=== PATIENT | male | born 1960 | race African-American/Black ===

== ENCOUNTER 2022-01-11 10:10 | Outpatient (CLI) | payer SELFPAY ==
[2022-01-11] MEDS ORDERED: CADEXOMER IODINE UD 5 GM TUBE ONE (10:51)
== END 2022-01-11 23:59 | disposition home or self-care (01) ==
LOC: WOU 10:10
PROVIDERS: ATTEND Specialist
DX: E11.621 Type 2 diabetes mellitus with foot ulcer (principal); L97.526 Non-pressure chronic ulcer of other part of left foot with bone involvement without evidence of necrosis; E11.69 Type 2 diabetes mellitus with other specified complication; M86.672 Other chronic osteomyelitis, left ankle and foot; Z89.432 Acquired absence of left foot; Z79.4 Long term (current) use of insulin; Z79.84 Long term (current) use of oral hypoglycemic drugs
CPT/HCPCS: 99205; A6407; G0463

== ENCOUNTER 2022-02-20 20:51 | Inpatient (IN) | payer OTHER ==
[~2022-02-20] VITALS: Ht 180.3 cm; Wt 97.5 kg
[2022-02-20] MEDS ORDERED: ENALAPRILAT DIHYD. (2.5MG/2ML) 1.25 MG/ML VIAL IV ONE (21:00)
[2022-02-20] MEDS ORDERED: ENALAPRILAT INJ (1.25 MG/ML) 1.25 MG/ML VIAL IV ONE (21:04)
[2022-02-20] MEDS ORDERED: AMLODIPINE BESYLATE 10 MG TABLET ONE (21:04)
--- NOTE | 2022-02-20 21:04 | NUR ---
[facility] FROM HOME TO ER BED 3. AAOX4. NOT IN RESP DISTRESS. BROUGHT IN FOR HEADACHE STARTED ABOUT AN HOUR BRIM AND CROWN PRESSER. PT WAS NOTED HYPERTENSIVE REPORTED WITH SBP>200. PT IS ALSO C/O NAUSEA. PT TOOK HIS LISINOPRIL BRIM AND CROWN PRESSER. SARAH GAVE PT ZOFRAN 4MG IV. L AC IV STARTED BY HANGING FLAGS DECORATOR. WAS AT THE BEDSIDE FOR EVAL. ORDERS RECEIVED AND NOTED. PT ON MONITOR
--- NOTE | 2022-02-20 21:11 | NUR ---
xray at bedside
[2022-02-20 21:20] LABS: BASOPHILS # (AUTO) 0.1 K/uL (0.0-0.2); BASOPHILS % (AUTO) 0.6 % (0.0-2.0); EOSINOPHILS % (AUTO) 2.2 % (0.0-6.0); HEMATOCRIT 38 % (39-51); HEMOGLOBIN 12.2 g/dL (13.5-17.5); LYMPHOCYTES # (AUTO) 2.1 K/uL (0.8-4.8); LYMPHOCYTES % (AUTO) 24.8 % (20.0-44.0); MEAN CORPUSCULAR HGB CONC 32 g/dl (31.0-36.0); MEAN CORPUSCULAR VOLUME 88 fL (80-96); MONOCYTES # (AUTO) 0.5 K/uL (0.1-1.30); MONOCYTES % (AUTO) 6.2 % (2.0-12.0); NEUTROPHILS # (AUTO) 5.6 K/uL (1.8-8.9); NEUTROPHILS % (AUTO) 66.2 % (43.0-81.0); PLATELET COUNT (AUTO) 308 K/uL (150-450); RED BLOOD CELL COUNT(AUTO) 4.36 MIL/uL (4.5-6.0); WHITE BLOOD COUNT (AUTO) 8.5 K/uL (4.3-11.0)
[2022-02-20] MEDS ORDERED: AMLODIPINE BESYLATE 5 MG TABLET PO ONE (21:30)
[2022-02-20 21:39] LABS: CALCIUM, SERUM 8.2 mg/dL (8.5-10.1); CARBON DIOXIDE 24 mmol/L (21-32); CHLORIDE 108 mmol/L (98-107); CREATININE 2.4 mg/dL (0.6-1.3); GLUCOSE 270 mg/dL (74-106); POTASSIUM 2.9 mmol/L (3.5-5.1); SODIUM SERUM 141 mmol/L (136-145); UREA NITROGEN, BLOOD 20 mg/dL (7-18)
[2022-02-20 21:48] LABS: ALANINE AMINOTRANSFERASE 12 U/L (12-78); ALKALINE PHOSPHATASE 103 U/L (46-116); ASPARTATE AMINOTRANSFERASE 15 U/L (15-37); BILIRUBIN,DIRECT 0.1 mg/dL (0.0-0.2); BILIRUBIN,TOTAL 0.3 mg/dL (0.2-1.0); TOTAL PROTEIN, SERUM 6.7 g/dL (6.4-8.2)
--- NOTE | 2022-02-20 21:52 | NUR ---
TROP 98 AWARE
--- NOTE | 2022-02-20 21:54 | NUR ---
pt being transported to ct via [facility]
--- NOTE | 2022-02-20 21:58 | NUR ---
COVID TEST COLLECTED AND SENT TO LAB
[2022-02-20] MEDS ORDERED: ASPIRIN 325 MG TABLET PO ONE (22:00)
[2022-02-20] MEDS ORDERED: NITROGLYCERIN PACKET 1 GM PACKET TD ONE (22:00)
[2022-02-20] MEDS ORDERED: NITROGLYCERIN PACKET 1 GM PACKET ONE (22:02)
[2022-02-20] MEDS ORDERED: ASPIRIN 325 MG TABLET ONE (22:02)
--- NOTE | 2022-02-20 22:03 | NUR ---
DR CHISHOLM ON THE PHONE WITH VICKEY SIMMONS, HOSPITALIST
--- NOTE | 2022-02-20 22:41 | NUR ---
RECIEVED BED 312-1
--- NOTE | 2022-02-20 22:49 | NUR ---
DR SIMMONS AT BEDSIDE
--- NOTE | 2022-02-20 23:32 | NUR ---
REPORT GIVEN TO KALANI
[2022-02-20 23:40] VITALS: BP 171/103
--- NOTE | 2022-02-20 23:42 | NUR ---
PT TRANSPORTED TO ROOM 312-1 ON PLASTIC SHEETING CUTTER PER ACLS
[2022-02-21] VITALS (18 sets, daily range): BP systolic 106–192; BP diastolic 62–106
[2022-02-21] MEDS ORDERED: ONDANSETRON HCL/PF 4 MG/2 ML VIAL IVP PRN
[2022-02-21] MEDS ORDERED: Z GUARD REMEDY 4 OZ OINT TP PRN
[2022-02-21] MEDS ORDERED: hydrALAZINE HCL IV 20 MG VIAL IV PRN
[2022-02-21] MEDS ORDERED: HYDROMORPHONE INJ 2 MG/ML DISP.SYRIN IV PRN
[2022-02-21] MEDS ORDERED: DEXTROSE 50%-WATER 50 ML DISP.SYRIN IV PRN
[2022-02-21] MEDS ORDERED: ACETAMINOPHEN 325 MG TABLET PO PRN
[2022-02-21 00:24] LABS: MAGNESIUM 2.1 mg/dL (1.8-2.4)
--- NOTE | 2022-02-21 00:28 | NUR ---
RN NOTES RECEIVED CALL FROM LAB FOR CRITICAL LAB VALUE FOR TROPONIN OF 92. VICKEY SIMMONS MADE AWARE. NO NEW ORDERS.
[2022-02-21] MEDS ORDERED: NICARDIPINE HCL 40 MG in IV NS 0.9% 184 ML IV PRN (00:30)
[2022-02-21] MEDS ORDERED: POTASSIUM CHLORIDE 20 MEQ TAB.PRT.SR PO ONE ×2 (01:00)
[2022-02-21] MEDS ORDERED: HYDROMORPHONE 1 MG/1 ML DISP.SYRIN IV STA (01:08)
--- NOTE | 2022-02-21 01:11 | NUR ---
RN NOTES RECEIVED PT VIA DECLANRjCRISTINA [employer] 9835. TOOK 1ST SET OF VITALS: 171/103, 93, 20 RESPIRATIONS, 98.1 97%. TOOK VITALS AGAIN AND IT WAS 185/107, 98%, 98 PULSE, 20 RESPIRATIONS, 98.1, 8/10 PAIN IN LEFT LEG DUE TO RECENT BELOW THE KNEE AMPUTATION, WHICH WAS DONE ABOUT 2-3 WEEKS AGO. PATIENT COMPLAINED OF PAIN 8/10 THAT WAS NOT TREATED IN ER. ADMINISTERED 0.25 ML OF DILAUDID IV PUSH IN LAC #18G. ALSO ADMINISTERED 40 MEQ OF POTASSIUM PER MD ORDER. THEN RECEIVED ORDER FROM VICKEY SIMMONS THAT ADMISSION STATUS FOR PATIENT CHANGED TO ICU STATUS FOR LAKHWINDERM DRIP. UNABLE TO DO BELONGINGS LIST OR WOUND PICTURES DUE TO TIME RESTRICTIONS. PATIENT TRANSFERRED UNDER ACLS PROTOCOL TO ICU ROOM 255. REPORT GIVEN CHIEF CLIENT OFFICER MOSHE. CHARGE NURSE AND NURSING GRAINER MACHINE AWARE.
[2022-02-21] MEDS ORDERED: INSU100V7 SQ (02:05)
[2022-02-21] MEDS ORDERED: LISI-768 PO (02:05)
[2022-02-21] MEDS ORDERED: JANUVIA PO (02:05)
--- NOTE | 2022-02-21 02:09 | NUR ---
RN/ICU HOME MEDS .LIST OBTAINED FROM PT. INCOMPLETE,PT. DOES NOT REMEMBER ALL MEDS. ABLE TO GATHER 3 MEDS. WILL ASK TO BRING MED LIST IN AM.
--- NOTE | 2022-02-21 02:17 | NUR ---
AUTOMOBILE UPHOLSTERY TRIM INSTALLER. TRANSFER THE PT FROM TELE VIA PT BED. FOR HIGH BLOOD PRESSURE. PT IS AWAKE, ALERT, FOLLOW COMMANDS. ANODIZER SHOWING NSR. IV RT AC 18G. SALINE LOCK. HOB ELEVATED. LT BKA. .A FEBRILE. WILL CONTINUE TO MONITOR VITALS.
[2022-02-21] MEDS ORDERED: CLOP75TA15 PO (02:32)
[2022-02-21] MEDS ORDERED: POTA10CA43 PO (02:32)
[2022-02-21] MEDS ORDERED: APIX5TAB PO (02:32)
[2022-02-21] MEDS ORDERED: SENN-261 PO (02:32)
[2022-02-21] MEDS ORDERED: CARV25TA2 PO (02:32)
[2022-02-21] MEDS ORDERED: VALS40TA4 PO (02:32)
[2022-02-21] MEDS ORDERED: GABA-532 PO (02:32)
[2022-02-21 04:15] LABS: BASOPHILS # (AUTO) 0.1 K/uL (0.0-0.2); BASOPHILS % (AUTO) 1.3 % (0.0-2.0); HEMATOCRIT 37 % (39-51); HEMOGLOBIN 11.8 g/dL (13.5-17.5); LYMPHOCYTES # (AUTO) 1.8 K/uL (0.8-4.8); LYMPHOCYTES % (AUTO) 21.3 % (20.0-44.0); MEAN CORPUSCULAR HGB CONC 32 g/dl (31.0-36.0); MEAN CORPUSCULAR VOLUME 89 fL (80-96); MONOCYTES # (AUTO) 0.6 K/uL (0.1-1.30); MONOCYTES % (AUTO) 7.7 % (2.0-12.0); NEUTROPHILS # (AUTO) 5.7 K/uL (1.8-8.9); NEUTROPHILS % (AUTO) 68.7 % (43.0-81.0); PLATELET COUNT (AUTO) 227 K/uL (150-450); RED BLOOD CELL COUNT(AUTO) 4.14 MIL/uL (4.5-6.0); WHITE BLOOD COUNT (AUTO) 8.3 K/uL (4.3-11.0)
[2022-02-21 04:38] LABS: CALCIUM, SERUM 7.9 mg/dL (8.5-10.1); CREATININE 2.4 mg/dL (0.6-1.3); MAGNESIUM 2.1 mg/dL (1.8-2.4); PHOSPHORUS 2.8 mg/dL (2.5-4.9); POTASSIUM 3.7 mmol/L (3.5-5.1)
[2022-02-21 05:18] LABS: THYROID STIMULATING HORMONE 1.621 uIU/mL (0.358-3.74)
[2022-02-21] MEDS: HYDROMORPHONE INJ 2 MG/ML DISP.SYRIN IV PRN ×5 (05:37→22:34)
--- NOTE | 2022-02-21 06:20 | NUR ---
PHARMACY TECHNICIAN PER DIEM. PT SLEPT ON AND OFF DURING SHIFT, PT IS ROOM AIR. SAT 98%. NO ACUTE DISTRESS NOTED. BLOOD PRESSURE IS STABLE. WILL MONITOR VITALS.
--- NOTE | 2022-02-21 07:30 | NUR ---
RN NOTES PT FOUND SEMI FOWLERS DISPLAYING NO S/S OF ACUTE DISTRESS, PT ENDORSES 5/10 PAIN SCALE AND IS BREATHING EVEN AND UNLABORED ON RA. RN WILL MANAGE PAIN USING PRN GUIDELINES, PT EDUCATED ON PAIN MANAGEMENT. A&OX4, CALM AND COOPERATIVE. L AC 18G IS PATIENT AND INTACT. RN WILL CONTINUE CARE PLAN AND ANTICIPATE NEEDS. SAFETY MEASURES IN PLACE, BED LOCKED AND IN LOWEST POSITION, SIDE RAILS UPX2, CALL LIGHT WITHIN REACH, PT INSTRUCTED TO CALL FOR ASSISTANCE.
[2022-02-21] MEDS: PANTOPRAZOLE 40 MG TABLET.DR PO SCH (07:48)
[2022-02-21] MEDS: BLOOD SUGAR DIAGNOSTIC 1 EACH STRIP IN SCH ×4 (07:48→21:45)
[2022-02-21] MEDS: ASPIRIN 81 MG TAB.CHEW PO SCH (08:11)
[2022-02-21] MEDS: INSULIN REGULAR, HUMAN 100 UNIT/ML 3 ML VIAL SQ PRN ×3 (08:13→21:50)
[2022-02-21] MEDS ORDERED: HEPARIN SODIUM, PORCINE 5000 UNITS/1 ML VIAL SQ SCH (09:00)
--- NOTE | 2022-02-21 10:00 | NUR ---
MD VISIT DR DEAL GAVE ORDERS IN PERSON: CONTINUE HOME MEDICATIONS, INCREASE GABAPENTIN FROM 300 MG TID TO 600 MG BID, OXYCONTIN 10MG PRN SEVERE PAIN Q6H. RN ACKNOWLEDGED AND WILL CARRY OUT ORDERS.
[2022-02-21] MEDS ORDERED: NALOXONE HCL 0.4 MG/ML AMPUL IV PRN (10:30)
[2022-02-21] MEDS ORDERED: oxyCODONE HCL SR 10MG TAB.SR.12H PO PRN (10:30)
--- NOTE | 2022-02-21 10:50 | NUR ---
RN NOTE PATIENT TRANSFERRED TO ROOM 111-2 [facility]. REPORT GIVEN TO JOAQUIN SAINI. PATIENT STABLE ON ROOM AIR WITH NO SIGNS OF LABORED BREATHING. PATIENT STABLE DURING TRANSFER.
[2022-02-21] MEDS ORDERED: LISINOPRIL (5MG) 5 MG TABLET PO SCH (11:00)
--- NOTE | 2022-02-21 11:08 | NUR ---
RN NOTE PATIENT WAS TRANSFERRED TO UNIT FROM ICU, PATIENT CAME TO UNIT VIA GURNEY WITH NO SIGNS OF DISTRESS. PATIENT WAS ORIENTED TO ROOM SET UP AND SHOWED PATIENT HOW TO USE CALL LIGHT. PATIENT AWAKE IN BED RESTING, A/O X4. NO S/S OF PAIN NOTED AT THIS TIME. ON ROOM AIR, NO DISTRESS OR SHORTNESS OF BREATH NOTED. IV ACCESS LAC #18G, INTACT, PATENT AND FLUSHING WELL. FALL AND SAFETY MEASURES IN PLACE, BED ALARM ON BED IN LOW AND LOCK POSITION, CALL LIGHT AND TABLE WITHIN EASY REACH, SIDE RAILS UP X2. WILL CONTINUE TO MONITOR.
--- NOTE | 2022-02-21 16:09 | NUR ---
CLARIFIED WITH DR. GIRALDO IF OK TO GIVE PLAVIX/ASA R/T INCOMING PROCEDURE IN AM PER MD OK TO GIVE IT ORDERED IN AM.
[2022-02-21] MEDS: SENNOSIDES 8.6 MG TABLET PO SCH ×2 (17:00→17:01)
[2022-02-21] MEDS: GABAPENTIN 300 MG CAPSULE PO SCH (17:01)
[2022-02-21] MEDS: CARVEDILOL 12.5 MG TABLET PO SCH (17:01)
[2022-02-21] MEDS: POTASSIUM CHLORIDE 10 MEQ TABLET.SA PO SCH (17:01)
--- NOTE | 2022-02-21 19:00 | NUR ---
RN NOTE PATIENT WAS TRANSFERRED TO UNIT FROM ER, PATIENT CAME TO UNIT VIA GURNEY WITH NO SIGNS OF DISTRESS. REPORT RECEIVED FROM GAGE. PER ER NURSE SEAY CATHETER WAS ADVANCED AND REINFLATED AGAIN, IN PLACE AND DRAINING WELL. PATIENT WAS ORIENTED TO ROOM SET UP AND SHOWED PATIENT HOW TO USE CALL LIGHT. PATIENT AWAKE IN BED RESTING, A/O X3. NO S/S OF PAIN NOTED AT THIS TIME. ON ROOM AIR, NO DISTRESS OR SHORTNESS OF BREATH NOTED. IV ACCESS LFA #20G, INTACT, PATENT AND FLUSHING WELL. FALL AND SAFETY MEASURES IN PLACE, BED ALARM ON BED IN LOW AND LOCK POSITION, CALL LIGHT AND TABLE WITHIN EASY REACH, SIDE RAILS UP X2. WILL ENDORSE TO ROVING CHANGER. Addendum: 02/21/22 at 1941 by Alberta Howe RN DISREGARD THIS NOTE, ERROR.
--- NOTE | 2022-02-21 19:42 | NUR ---
RN CLOSING NOTE PATIENT AWAKE IN BED RESTING, A/O X4. NO S/S OF PAIN NOTED AT THIS TIME. ON ROOM AIR, NO DISTRESS OR SHORTNESS OF BREATH NOTED. IV ACCESS LAC #18G, INTACT, PATENT AND FLUSHING WELL. FALL AND SAFETY MEASURES IN PLACE, BED ALARM ON BED IN LOW AND LOCK POSITION, CALL LIGHT AND TABLE WITHIN EASY REACH, SIDE RAILS UP X2. WILL ENDORSE TO OPTOMETRIC ASSISTANT.
--- NOTE | 2022-02-21 19:55 | NUR ---
RN OPENING NOTE PATIENT AWAKE IN BED RESTING, A/O X4. NO S/S OF PAIN NOTED AT THIS TIME. ON ROOM AIR, NO DISTRESS OR SHORTNESS OF BREATH NOTED. IV ACCESS LAC #18G, INTACT, PATENT AND FLUSHING WELL. FALL AND SAFETY MEASURES IN PLACE, BED ALARM ON BED IN LOW AND LOCK POSITION, CALL LIGHT AND TABLE WITHIN EASY REACH, SIDE RAILS UP X2. WILL CONTINUE TO MONITOR.
[2022-02-21] MEDS: ATORVASTATIN 40 MG TABLET PO SCH (21:45)
[2022-02-21] MEDS: INSULIN GLARGINE, 100 UNIT/ML CARTRIDGE SQ PRN (21:51)
--- NOTE | 2022-02-21 22:39 | NUR ---
rn notes prn dilaudid given for pain 5/10 tolerated well will continue to monitor.
[2022-02-22 00:41] VITALS: BP 115/65
[2022-02-22] MEDS: HYDROMORPHONE INJ 2 MG/ML DISP.SYRIN IV PRN ×5 (02:40→22:07)
--- NOTE | 2022-02-22 02:43 | NUR ---
RN NOTE PRN DILAUDIDI GIVEN FOR 8/10 PAIN TOLERATED WELL. WILL CONTINUE TO MONITOR.
[2022-02-22 04:00] VITALS: BP 120/78
--- NOTE | 2022-02-22 07:25 | NUR ---
RN OPENING NOTE PATIENT AWAKE IN BED RESTING, A/O X4. DENIES PAIN AT THIS TIME. RECENTLY RECEIVED PAIN MEDICATION. ON ROOM AIR, NO SOB NOTED. IV ACCESS LAC G#18, INTACT, PATENT AND FLUSHING WELL. FALL AND SAFETY MEASURES IN PLACE, BED ALARM ON BED IN LOW AND LOCK POSITION, CALL LIGHT AND TABLE WITHIN EASY REACH, SIDE RAILS UP X2. WILL CONTINUE TO MONITOR.
[2022-02-22 08:00] VITALS: BP 123/77
[2022-02-22] MEDS: VALSARTAN 40 MG TABLET PO SCH (08:28)
[2022-02-22] MEDS: LINAGLIPTIN 5 MG TABLET PO SCH (08:28)
[2022-02-22] MEDS: CLOPIDOGREL BISULFATE 75 MG TABLET PO SCH (08:28)
[2022-02-22] MEDS: GABAPENTIN 300 MG CAPSULE PO SCH ×2 (08:28→17:36)
[2022-02-22] MEDS: PANTOPRAZOLE 40 MG TABLET.DR PO SCH (08:29)
[2022-02-22] MEDS: SENNOSIDES 8.6 MG TABLET PO SCH ×2 (08:29→17:35)
[2022-02-22] MEDS: ASPIRIN 81 MG TAB.CHEW PO SCH (08:29)
[2022-02-22] MEDS: POTASSIUM CHLORIDE 10 MEQ TABLET.SA PO SCH ×2 (08:29→17:36)
[2022-02-22] MEDS: CARVEDILOL 12.5 MG TABLET PO SCH ×2 (08:29→17:36)
[2022-02-22] MEDS ORDERED: APIXABAN 5 MG TABLET PO SCH (09:00)
[2022-02-22] MEDS ORDERED: IV NS 0.9% 1,000 ML IV SCH (09:30)
[2022-02-22] MEDS: BLOOD SUGAR DIAGNOSTIC 1 EACH STRIP IN SCH ×4 (09:38→22:55)
[2022-02-22 12:00] VITALS: BP 118/72
[2022-02-22] MEDS ORDERED: LIDOCAINE HCL/PF 1% 30 ML SDV ONE (14:28)
[2022-02-22] MEDS ORDERED: IODIXANOL 150 ML IV ONE (14:28)
[2022-02-22] MEDS ORDERED: FENTANYL PF 100MCG/2ML AMPUL ONE (14:29)
[2022-02-22] MEDS ORDERED: NITROGLYCERIN IN 5 % DEXTROSE 250 ML IV ONE (14:29)
[2022-02-22] MEDS ORDERED: MIDAZOLAM HCL 2 MG/2ML VIAL ONE (14:29)
[2022-02-22 16:00] VITALS: BP 123/75
--- NOTE | 2022-02-22 16:00 | NUR ---
RN NOTES PATIENT BACK IN ROOM FROM SPEAKER WIRER PROCEDURE. NO COMPLICATIONS OR INTERVENTIONS DURING PROCEDURE. VSS. AWAKE, A/O X4. TR BAND IN PLACE AT RIGHT WRIST. BALLOON FILLED 16ML. ORDERED TO START RELEASING AIR FROM BALLOON AT 1640. RELEASE 3-5ML OF AIR EVERY 15 MINS UNTIL BALLOON DEFLATED COMPLETELY. SAFETY MEASURES IN PLACE. WILL CONTINUE TO MONITOR PATIENT
--- NOTE | 2022-02-22 16:42 | NUR ---
RN NOTES RELEASED 3ML FROM TR BAND. REMAINING AIR IS 13ML. NO BLEEDING NOTED AT SITE.
--- NOTE | 2022-02-22 16:57 | NUR ---
RN NOTES RELEASED 3ML FROM TR BAND. REMAINING AIR IS 10ML. NO BLEEDING NOTED AT SITE.
--- NOTE | 2022-02-22 17:13 | NUR ---
RN NOTES RELEASED 3ML FROM TR BAND. REMAINING AIR IS 7ML. NO BLEEDING NOTED AT SITE.
--- NOTE | 2022-02-22 17:28 | NUR ---
RN NOTES RELEASED 3ML FROM TR BAND. REMAINING AIR IS 4ML. NO BLEEDING NOTED AT SITE.
--- NOTE | 2022-02-22 17:43 | NUR ---
RN NOTES RELEASED 3ML FROM TR BAND. REMAINING AIR IS 1ML. NO BLEEDING NOTED AT SITE.
[2022-02-22] MEDS: INSULIN REGULAR, HUMAN 100 UNIT/ML 3 ML VIAL SQ PRN ×2 (17:55→22:56)
--- NOTE | 2022-02-22 18:00 | NUR ---
RN NOTES TR BAND AIR BALLOON DEFLATED. NO SIGNS OF BLEEDING.
--- NOTE | 2022-02-22 19:00 | NUR ---
RN NOTES PATIENT IN BED RESTING COMFORTABLY. ALL ORDERS CARRIED OUT AND NEEDS MET. SAFETY MEASURES IN PLACE. WILL ENDORSE CARE TO CONTENT DIRECTOR NURSE
--- NOTE | 2022-02-22 19:15 | NUR ---
RN NOTE PT RECEIVED IN BED. PT ON ROOM AIR SHOWING NO S/SX OF RESP DISTRESS/SOB. BREATHING EVEN AND UNLABORED. PT COMPLAINING OF PAIN, PAIN MEDICATION ALMOST DUE. WILL MONITOR. PT IS A/OX4. ON MONITOR SHOWING NSR. PT ABLE TO AMBULATE WITH ASSISTIVE DEVICE. IV ACCESS NOTED ON LEFT AC #18 INFUSING NS AT 125 CC/HR. LINE FLUSHED, PATENT, WITH NO INFILTRATION. ALL SAFETY MEASURES IMPLEMENTED. HOB ELEVATED. CALL LIGHT WITHIN REACH. BED LOCKED AND IN LOWEST POSITION. SIDE RAILS UP X2. WILL CONTINUE TO MONITOR AND ASSESS FOR ANY CHANGES DURING SHIFT.
[2022-02-22 20:00] VITALS: BP 100/61
--- NOTE | 2022-02-22 22:00 | NUR ---
RN NOTE Walked into alert/oriented x4 patients room to conduct patient rounding and patient stated he needed to use the restroom, patient stated that he is able to walk by himself all the time with use of walker and previous endorsements mentioned that he is able to ambulate with walker independently without any troubles in ICU and in [facility] unit. When patient stood up, I asked if he was feeling dizzy at all or SOB and per patient he stated he was feeling perfect and he was able to walk. I told patient previously if he wasn't feeling okay to walk, we could provide a bedpan, but patient refused and insisted he was perfectly okay to walk with his walker. As he got up, took a few steps with the walker, I witnessed the fall d/t patient stating the walker moved forward as he touched it. Patient ended up falling down, but caught himself as he went down. Upon assessment post fall, patient was still A/Ox4, stated he was perfectly fine, did not feel injured at all, did not hit head, denied any pain when asked, and that there is nothing wrong with him. health services administrator Shyla aware and patient stated same statement to health services administrator Shyla. Will continue to monitor for any changes. All safety measures implemented.
[2022-02-22] MEDS: ATORVASTATIN 40 MG TABLET PO SCH (22:07)
--- NOTE | 2022-02-22 23:09 | NUR ---
RN NOTE Spoke with Dr. Roberto about pt fall and per , monitor neuro status and update if any change in neuro status. Will continue to monitor and assess for any changes, but per assessment and patient response to fall, patient still a/ox4, no injuries, no pain noted with patient stating he is perfectly fine. All safety measures implemented, bed alarm on, bed locked and in lowest position, side rails up. Will continue to monitor.
[2022-02-23] VITALS: BP 118/68
--- NOTE | 2022-02-23 00:30 | NUR ---
RN NOTE Patient resting in bed comfortably. No changes in condition. Patient alert and oriented x4, verbalizes needs and all needs met. Will continue to monitor throughout shift.
[2022-02-23] MEDS: HYDROMORPHONE INJ 2 MG/ML DISP.SYRIN IV PRN ×5 (03:01→19:54)
[2022-02-23] MEDS: IV NS 0.9% 1,000 ML IV PRN ×2 (03:16→18:51)
[2022-02-23 04:00] VITALS: BP 130/74
--- NOTE | 2022-02-23 04:30 | NUR ---
RN NOTE PT IS PERFECTLY FINE. NO SIGNS OF DISTRESS. PT IS ALERT AND ORIENTED X4, ABLE TO VERBALIZE NEEDS. PT HAS BEEN WALKING SINCE ADMISSION AND LAST 2 WEEKS WITH NO PROBLEMS.
--- NOTE | 2022-02-23 06:28 | NUR ---
RN NOTE PT ON ROOM AIR SHOWING NO S/SX OF RESP DISTRESS/SOB. BREATHING EVEN AND UNLABORED. PT IS A/OX4. NO SIGNS OF DISTRESS. ON MONITOR SHOWING NSR. IV ACCESS NOTED ON LEFT AC #18 INFUSING NS AT 125 CC/HR. ALL DUE MEDS GIVEN ORDERED. PT KEPT CLEAN AND COMFORTABLE. ALL SAFETY MEASURES IMPLEMENTED. HOB ELEVATED. CALL LIGHT WITHIN REACH. BED LOCKED AND IN LOWEST POSITION. SIDE RAILS UP X2. WILL ENDORSE TO MORNING SHIFT RN FOR MASSIEL.
[2022-02-23 08:00] VITALS: BP 119/68
[2022-02-23] MEDS: PANTOPRAZOLE 40 MG TABLET.DR PO SCH (08:03)
[2022-02-23] MEDS: BLOOD SUGAR DIAGNOSTIC 1 EACH STRIP IN SCH ×4 (08:05→22:16)
[2022-02-23] MEDS: SENNOSIDES 8.6 MG TABLET PO SCH ×2 (08:36→17:33)
[2022-02-23] MEDS: GABAPENTIN 300 MG CAPSULE PO SCH ×2 (08:38→17:33)
[2022-02-23] MEDS: ASPIRIN 81 MG TAB.CHEW PO SCH (08:38)
[2022-02-23] MEDS: CARVEDILOL 12.5 MG TABLET PO SCH ×2 (08:38→17:33)
[2022-02-23] MEDS: POTASSIUM CHLORIDE 10 MEQ TABLET.SA PO SCH ×2 (08:38→17:33)
[2022-02-23] MEDS: CLOPIDOGREL BISULFATE 75 MG TABLET PO SCH (08:39)
[2022-02-23] MEDS: VALSARTAN 40 MG TABLET PO SCH (08:39)
[2022-02-23] MEDS: LINAGLIPTIN 5 MG TABLET PO SCH (08:39)
[2022-02-23] MEDS: INSULIN REGULAR, HUMAN 100 UNIT/ML 3 ML VIAL SQ PRN ×4 (08:42→22:16)
[2022-02-23] MEDS: INSULIN GLARGINE, 100 UNIT/ML CARTRIDGE SQ PRN (08:43)
[2022-02-23 10:15] LABS: CALCIUM, SERUM 8.3 mg/dL (8.5-10.1); CREATININE 2.8 mg/dL (0.6-1.3); POTASSIUM 4.4 mmol/L (3.5-5.1)
[2022-02-23 10:20] LABS: BASOPHILS # (AUTO) 0.1 K/uL (0.0-0.2); BASOPHILS % (AUTO) 0.7 % (0.0-2.0); EOSINOPHILS % (AUTO) 3.2 % (0.0-6.0); HEMATOCRIT 34 % (39-51); HEMOGLOBIN 11.1 g/dL (13.5-17.5); LYMPHOCYTES # (AUTO) 1.6 K/uL (0.8-4.8); LYMPHOCYTES % (AUTO) 20.6 % (20.0-44.0); MEAN CORPUSCULAR HGB CONC 32 g/dl (31.0-36.0); MEAN CORPUSCULAR VOLUME 90 fL (80-96); MONOCYTES # (AUTO) 0.7 K/uL (0.1-1.30); MONOCYTES % (AUTO) 8.6 % (2.0-12.0); NEUTROPHILS # (AUTO) 5.2 K/uL (1.8-8.9); NEUTROPHILS % (AUTO) 66.9 % (43.0-81.0); PLATELET COUNT (AUTO) 233 K/uL (150-450); RED BLOOD CELL COUNT(AUTO) 3.82 MIL/uL (4.5-6.0); WHITE BLOOD COUNT (AUTO) 7.8 K/uL (4.3-11.0)
[2022-02-23 10:50] LABS: ALBUMIN 1.9 g/dL (3.4-5.0); BILIRUBIN,DIRECT 0.1 mg/dL (0.0-0.2); BILIRUBIN,TOTAL 0.3 mg/dL (0.2-1.0); PHOSPHORUS 2.6 mg/dL (2.5-4.9); TOTAL PROTEIN, SERUM 6.3 g/dL (6.4-8.2)
[2022-02-23 12:00] VITALS: BP 127/73
[2022-02-23 16:00] VITALS: BP 127/73
--- NOTE | 2022-02-23 16:34 | NUR ---
SHIFT SUMMARY VSS, AFEBRILE, PAIN MANAGED WITH DILAUDID X2. A/OX4. ON ROOM AIR, SATURATING WELL AT >99%. IV ACCESS L AC #18, NS RUNNING AT 125 ML/HR, INTACT AND PATENT. L BKA NOTED WITH DAVIS WRAP, C/D/I. SUPPLEMENTAL INSULIN GIVEN PER MD-SLIDING SCALE. SAFETY MEASURES MAINTAINED. BED IN LOWEST POSITION, BRAKES LOCKED. SIDE RAILS UP X2. CALL LIGHT WITHIN REACH. WILL ENDORSE CONTINUITY OF CARE TO ONCOMING SHIFT.
--- NOTE | 2022-02-23 19:15 | NUR ---
RN OPENING NOTES RECEIVED PATIENT ON BED, ALERT AND VERBALLY RESPONSIVE, A/O x 4, ON ROOM AIR SATING AT 100%, RESPIRATORY EVEN AND UNLABORED, NO SOB NOTED, NOT IN ACUTE DISTRESS. REMAIN AFEBRILE. NOTED WITH LAC #18 IV LINE, PATENT, INTACT. FLUSHED WITH NS, NO S/S OF INFILTRATION NOTED AT SITE. RUNNING WITH NS @ 125 ML/HR. ALL SAFETY MEASURE PROVIDED. BED IN LOWEST POSITION, LOCKED. BED ALARM ARMED. CALL LIGHT WITH IN REACH. CONTINUE TO MONITOR.
[2022-02-23 20:00] VITALS: BP 100/56
[2022-02-23] MEDS: ATORVASTATIN 40 MG TABLET PO SCH (22:10)
--- NOTE | 2022-02-23 22:16 | NUR ---
RN NOTES BLOOD SUGAR 116 mg/dL, NO INSULIN COVERAGE PER SLIDING SCALE.
--- NOTE | 2022-02-23 23:00 | NUR ---
RN NOTES PATIENT REFUSED TO WEAR TELEBOX, EXPLAINED RISKS AND BENEFITS OFFER 3X, STILL REFUSED.
--- NOTE | 2022-02-23 23:34 | NUR ---
RN NOTES PATIENT NOTED WITH PULLED OUT IV LINE, REFUSED TO BE INSERTED, PATIENT STATES THAT HE DOESN'T WANT IT TO REINSERTED, PATIENT IS UNCOOPERATIVE AT THIS TIME AND NOTED WITH MILD AGITATION. EXPLAINED RISKS AND BENEFITS OFFER 3X, STILL REFUSED. WILL TRY AGAIN LATER.
--- NOTE | 2022-02-24 | NUR ---
RN NOTES PATIENT REFUSED TO TAKE HIS VITAL SIGNS, PATIENT IS UNCOOPERATIVE AT THIS TIME AND NOTED WITH AGITATION AND SCREAMING. EXPLAINED RISKS AND BENEFITS OFFER 3X, STILL REFUSED. WILL TRY AGAIN LATER.
--- NOTE | 2022-02-24 04:00 | NUR ---
RN NOTES PATIENT REFUSED TO TAKE HIS VITAL SIGNS, PATIENT IS UNCOOPERATIVE AT THIS TIME AND NOTED WITH AGITATION AND SCREAMING. EXPLAINED RISKS AND BENEFITS OFFER 3X, STILL REFUSED.
--- NOTE | 2022-02-24 05:20 | NUR ---
RN NOTES PATIENT REFUSED TO TAKE PICTURE ON HIS LEFT BKA SURGICAL WOUND.
--- NOTE | 2022-02-24 06:35 | NUR ---
RN NOTES PATIENT REFUSED BLOOD DRAW, EXPLAINED RISKS AND BENEFITS OFFER 3X, STILL REFUSED.
--- NOTE | 2022-02-24 07:36 | NUR ---
RN NOTES PATIENT REMAIN STABLE THROUGH OUT THE SHIFT, RESPIRATORY EVEN AND UNLABORED, NO SOB NOTED, NOT IN ACUTE DISTRESS. REMAIN AFEBRILE. ALL DUE MEDS GIVEN ORDERED. ALL SAFETY MEASURE PROVIDED. BED IN LOWEST POSITION, LOCKED. BED ALARM ARMED. CALL LIGHT WITH IN REACH. REPORT GIVEN TO MORNING SHIFT NURSE.
[2022-02-24] MEDS: BLOOD SUGAR DIAGNOSTIC 1 EACH STRIP IN SCH ×4 (07:47→22:19)
--- NOTE | 2022-02-24 07:57 | NUR ---
COATING MIXER TENDER OPENING NOTES RECEIVED PATIENT IN BED, AWAKE, A/O x 4, ABLE TO MAKE NEEDS KNOWN. PATIENT IS ON ROOM AIR, BREATHING EVEN AND UNLABORED, NO SOB NOTED, NOT IN ACUTE DISTRESS. REFUSES TELE MONITORING. REFUSES IV INSERTION THAT PATIENT REMOVED AT NIGHT. ALL SAFETY PRECAUTIONS IN PLACE. BED IN LOWEST POSITION, LOCKED, RAILS UP X2, CALL LIGHT WITH IN REACH. WILL CONTINUE TO MONITOR PATIENT.
[2022-02-24] MEDS: ASPIRIN 81 MG TAB.CHEW PO SCH (08:34)
[2022-02-24] MEDS: POTASSIUM CHLORIDE 10 MEQ TABLET.SA PO SCH ×2 (08:34→17:34)
[2022-02-24] MEDS: GABAPENTIN 300 MG CAPSULE PO SCH ×2 (08:34→17:34)
[2022-02-24] MEDS: CARVEDILOL 12.5 MG TABLET PO SCH ×2 (08:35→17:35)
[2022-02-24] MEDS: PANTOPRAZOLE 40 MG TABLET.DR PO SCH (08:35)
[2022-02-24] MEDS: LINAGLIPTIN 5 MG TABLET PO SCH (08:36)
[2022-02-24] MEDS: SENNOSIDES 8.6 MG TABLET PO SCH ×2 (08:36→17:34)
[2022-02-24] MEDS: CLOPIDOGREL BISULFATE 75 MG TABLET PO SCH (08:36)
[2022-02-24] MEDS: INSULIN REGULAR, HUMAN 100 UNIT/ML 3 ML VIAL SQ PRN ×2 (11:22→22:21)
[2022-02-24 12:00] VITALS: BP 152/89
[2022-02-24] MEDS: FUROSEMIDE 40 MG TABLET PO SCH (12:43)
[2022-02-24 16:00] VITALS: BP 115/70
--- NOTE | 2022-02-24 18:47 | NUR ---
MACHINE OPERATOR FARMWORKER CLOSING NOTES PATIENT REMAINS IN BED, AWAKE, A/O x 4, ABLE TO MAKE NEEDS KNOWN. PATIENT IS ON ROOM AIR, BREATHING EVEN AND UNLABORED, NO SOB DURING SHIFT. REFUSED TELE MONITORING. REFUSED IV INSERTION. ALL OTHER NEEDS ATTENDED DURING THE DAY. ALL SAFETY PRECAUTIONS IN PLACE. BED IN LOWEST POSITION, LOCKED, RAILS UP X2, CALL LIGHT WITH IN REACH. WILL ENDORSE TO ADMITTING MANAGER NURSE FOR MASSIEL.
--- NOTE | 2022-02-24 19:10 | NUR ---
RN NOTES RECEIVED REPORT FROM MORNING RN. PARTIENT IN BED A/O X3 ABLE TO MAKE NEEDS KNOWN. PATIENT ON ROOM AIR SATING 96% NO SOB NO DISTRESS NOTED AT THIS TIME. PATIENT REFUSED IV INSERTION R/B EXPLAINED STILL REFUSED. VITAL SIGNS TAKEN AND RECORDED. ALL SAFETY MEASURES IN PLACE AT ALL TIMES. BED ON LOWEST POSITION AND LOCKED. CALL LIGHT WITHIN REACH. WILL CLOSELY MONITOR THE PATIENT.
[2022-02-24 20:00] VITALS: BP 127/77
[2022-02-24] MEDS: ATORVASTATIN 40 MG TABLET PO SCH (22:12)
[2022-02-24] MEDS: INSULIN GLARGINE, 100 UNIT/ML CARTRIDGE SQ PRN (22:23)
--- NOTE | 2022-02-24 22:25 | NUR ---
RN NOTES BS 169 MG/DL DUE REGULAR INSULIN 3 UNITS GIVEN.
[2022-02-24 23:36] LABS: BILIRUBIN,URINE NEGATIVE (NEGATIVE); COLOR,URINE YELLOW (YELLOW); LEUKOCYTE ESTERASE ,URINE NEGATIVE (NEGATIVE); NITRITE, URINE NEGATIVE (NEGATIVE); PROTEIN,URINE >=300 mg/dl (NEGATIVE); UGLUCOSE 250 MG/DL mg/dL (NEGATIVE); UROBILINOGEN,URINE 0.2 EU/dL (0.2)
[2022-02-25] VITALS: BP 114/79
[2022-02-25] MEDS ORDERED: LACTULOSE 10 G/15 ML UDC (PYXIS) PO PRN
[2022-02-25 00:16] LABS: CREATININE, URINE 92.8 MG/DL (30.0-125.0); URINE SODIUM, RANDOM 39 mmol/l (40-220)
[2022-02-25 00:21] LABS: URINE TOTAL PROTEIN > 250.0 mg/dL (0-11.9)
[2022-02-25 06:00] VITALS: BP 114/79
[2022-02-25 06:26] LABS: EOSINOPHIL,URINE None Seen
--- NOTE | 2022-02-25 06:53 | NUR ---
RN NOTES PATIENT REMAINS STABLE THIS SHIFT ALL DUE MEDS GIVEN ORDERED. PATIENT REFUSED IV RE-INSERTION. R/B EXPLAINED STILL REFUSED. ALL NEEDS ATTENDED. PATIENT HAS AN EPISODES OF CONFUSION. PATIENT HAS 2X BM BUT PATIENT CLAIMING HE DIDNT HAVE BM FOR 2 DAYS. WILL ENDORSED TO MORNING RN FOR MASSIEL
--- NOTE | 2022-02-25 07:00 | NUR ---
MS RN OPENING NOTES PATIENT SITTING ON COMMODE, A/O X 4, ABLE TO MAKE NEEDS KNOWN. TOLERATING WELL ON ROOM AIR WITH NO S/S RESPIRATORY DISTRESS OR SOB. NO COMPLAINTS OF PAIN OR DISCOMFORT AT THIS TIME. SAFETY MEASURES IN PLACE: BED IN LOWEST LOCKED POSITION, SIDE RAILS UP X 2, CALL LIGHT WITHIN REACH. WILL CONTINUE TO MONITOR.
[2022-02-25] MEDS: BLOOD SUGAR DIAGNOSTIC 1 EACH STRIP IN SCH ×4 (07:35→22:11)
[2022-02-25] MEDS: PANTOPRAZOLE 40 MG TABLET.DR PO SCH (07:35)
[2022-02-25 07:57] LABS: CALCIUM, SERUM 8.1 mg/dL (8.5-10.1); POTASSIUM 4.1 mmol/L (3.5-5.1)
[2022-02-25 08:00] VITALS: BP 106/67
[2022-02-25] MEDS: FUROSEMIDE 40 MG TABLET PO SCH (08:36)
[2022-02-25] MEDS: CARVEDILOL 12.5 MG TABLET PO SCH ×2 (08:36→16:09)
[2022-02-25] MEDS: GABAPENTIN 300 MG CAPSULE PO SCH ×2 (08:37→16:28)
[2022-02-25] MEDS: CLOPIDOGREL BISULFATE 75 MG TABLET PO SCH (08:38)
[2022-02-25] MEDS: ASPIRIN 81 MG TAB.CHEW PO SCH (08:38)
[2022-02-25] MEDS: POTASSIUM CHLORIDE 10 MEQ TABLET.SA PO SCH ×2 (08:38→16:28)
[2022-02-25] MEDS: LINAGLIPTIN 5 MG TABLET PO SCH (08:38)
[2022-02-25] MEDS: SENNOSIDES 8.6 MG TABLET PO SCH ×3 (08:38→17:00)
[2022-02-25] MEDS: INSULIN REGULAR, HUMAN 100 UNIT/ML 3 ML VIAL SQ PRN ×5 (08:49→22:03)
[2022-02-25] MEDS: HYDROMORPHONE INJ 2 MG/ML DISP.SYRIN IV PRN ×3 (12:30→20:45)
[2022-02-25] MEDS: IV NS 0.9% 1,000 ML IV PRN ×2 (12:34→18:50)
[2022-02-25 16:00] VITALS: BP 107/63
--- NOTE | 2022-02-25 18:54 | NUR ---
MACHINE RIVETER CLOSING NOTES PATIENT SITTING ON BED, A/O X 4, ABLE TO MAKE NEEDS KNOWN, TOLERATING WELL ON ROOM AIR WITH NO S/S RESPIRATORY DISTRESS OR SOB. NO COMPLAINTS OF PAIN OR DISCOMFORT AT THIS TIME. PATIENT NOW WITH L HAND 20 G SL CLEAN, INTACT, AND INFUSING NS @ 125 ML/HR. PATIENT ALSO ON TELE MONITOR READING SR 86. PATIENT WITH L BKA WITH PERIODIC PHANTOM LIMB PAIN, PRN PAIN MEDICATIONS ADMINISTERED DURING SHIFT ORDERED. L BKA WRAPPED IN GAUZE C/D/I, NO ORDER FOR DRESSING CHANGE PRESENT, WILL ENDORSE TO PASTER HAT LINING. ALL NEEDS MET. SAFETY MEASURES IN PLACE: BED IN LOWEST LOCKED POSITION, SIDE RAILS UP X 2, CALL LIGHT WITHIN REACH WILL ENDORSE TO PASTER HAT LINING FOR MASSIEL.
--- NOTE | 2022-02-25 19:05 | NUR ---
RN OPENING NOTES RECEIVED PATIENT ON BED, ALERT AND VERBALLY RESPONSIVE, A/O x 4, ON ROOM AIR SATING AT 100%, RESPIRATORY EVEN AND UNLABORED, NO SOB NOTED, NOT IN ACUTE DISTRESS. REMAIN AFEBRILE. NOTED WITH LEFT HAND #18 IV LINE, PATENT, INTACT. FLUSHED WITH NS, NO S/S OF INFILTRATION NOTED AT SITE. RUNNING WITH NS @ 125 ML/HR. ALL SAFETY MEASURE PROVIDED. BED IN LOWEST POSITION, LOCKED. BED ALARM ARMED. CALL LIGHT WITH IN REACH. CONTINUE TO MONITOR.
[2022-02-25 20:00] VITALS: BP 119/67
[2022-02-25] MEDS: ATORVASTATIN 40 MG TABLET PO SCH (21:57)
[2022-02-26] VITALS: BP 113/66
[2022-02-26] MEDS: HYDROMORPHONE INJ 2 MG/ML DISP.SYRIN IV PRN ×5 (00:47→22:40)
[2022-02-26] MEDS: IV NS 0.9% 1,000 ML IV PRN ×2 (02:38→12:25)
[2022-02-26 04:00] VITALS: BP 135/70
--- NOTE | 2022-02-26 07:01 | NUR ---
RN NOTES PATIENT REMAIN STABLE THROUGH OUT THE SHIFT. RESPIRATORY EVEN AND UNLABORED, NO SOB NOTED, NOT IN ACUTE DISTRESS. REMAIN AFEBRILE. RUNNING WITH NS @ 125 ML/HR. ALL DUE MEDS GIVEN ORDERED. ALL SAFETY MEASURE PROVIDED. BED IN LOWEST POSITION, LOCKED. BED ALARM ARMED. CALL LIGHT WITH IN REACH. REPORT GIVEN TO MORNING SHIFT NURSE.
[2022-02-26 08:00] VITALS: BP 133/74
[2022-02-26] MEDS: INSULIN REGULAR, HUMAN 100 UNIT/ML 3 ML VIAL SQ PRN ×2 (08:10→21:53)
[2022-02-26] MEDS: CARVEDILOL 12.5 MG TABLET PO SCH ×2 (08:12→16:12)
[2022-02-26] MEDS: PANTOPRAZOLE 40 MG TABLET.DR PO SCH (08:12)
[2022-02-26] MEDS: POTASSIUM CHLORIDE 10 MEQ TABLET.SA PO SCH ×2 (08:12→16:12)
[2022-02-26] MEDS: BLOOD SUGAR DIAGNOSTIC 1 EACH STRIP IN SCH ×4 (08:12→21:14)
[2022-02-26] MEDS: GABAPENTIN 300 MG CAPSULE PO SCH ×2 (08:12→16:12)
[2022-02-26] MEDS: FUROSEMIDE 40 MG TABLET PO SCH (08:12)
[2022-02-26] MEDS: LINAGLIPTIN 5 MG TABLET PO SCH (08:12)
[2022-02-26] MEDS: CLOPIDOGREL BISULFATE 75 MG TABLET PO SCH (08:12)
[2022-02-26] MEDS: ASPIRIN 81 MG TAB.CHEW PO SCH (08:12)
[2022-02-26] MEDS: SENNOSIDES 8.6 MG TABLET PO SCH ×2 (08:23→16:12)
--- NOTE | 2022-02-26 11:16 | NUR ---
RN NOTE RECEIVED PATIENT ASLEEP IN BED, ON ROOM AIR SATING AT 100%, RESPIRATORY EVEN AND UNLABORED, NO SOB NOTED, NOT IN ACUTE DISTRESS. LEFT HAND #18 IV LINE, PATENT, INTACT WITH FLUIDS NS 125/HR. ALL SAFETY MEASURE PROVIDED. WILL CONTINUE TO MONITOR.
[2022-02-26 11:43] LABS: CALCIUM, SERUM 7.4 mg/dL (8.5-10.1); CREATININE 2.9 mg/dL (0.6-1.3)
[2022-02-26 12:00] VITALS: BP 141/82
--- NOTE | 2022-02-26 13:37 | NUR ---
RN NOTE PT NOTED SITTING ON THE FLOOR. PT DENIED HITTING HEAD, NO INJURIES NOTED, SKIN INTACT. ABLE TO MOVE R LEG WITHOUT PAIN. COMPLAINED OF MILD BUTTOCKS PAIN. MD MADE AWARE. NO NEW ORDERS AND WILL CONTINUE TO MONITOR. PER PT, HE SLID DOWN THE BED WHILE SITTING.
[2022-02-26 16:00] VITALS: BP 160/87
--- NOTE | 2022-02-26 16:24 | NUR ---
RN NOTE PT NOTED WITH T 100.9, PRN TYLENOL GIVEN. WILL CONTINUE TO MONITOR. COOLING MEASURES DONE.
--- NOTE | 2022-02-26 17:59 | NUR ---
RN NOTE IN RESPONSE TO BED ALARM, PT NOTED LYING ON FLOOR. DESPITE IMPLEMENTING SAFETY MEASURES AND CALL BUTTON BESIDE PT. NO INJURIES NOTED. PT ABLE TO MOVE ALL EXTREMITIES. COMPLAINED OF MILD PAIN ON LOVER BACK. PMD MADE AWARE. WITH T.O TO ORDER STAT LUMBAR SPINE X RAY. V/S STABLE. LATEST T-99.1 ON R/C. WILL CONTINUE TO MONITOR.
--- NOTE | 2022-02-26 19:12 | NUR ---
RN NOTE PT TRANSFERRED TO X RAY VIA WHEELCHAIR. NOT IN DISTRESS. IN GOOD CONDITION. GAVE REPORT TO 3WEST YENY WEEKS FOR MASSIEL.
--- NOTE | 2022-02-26 19:32 | NUR ---
RN NOTE RECEIVED PATIENT AWAKE IN ROOM AIR SATING AT 100%, RESPIRATORY EVEN AND UNLABORED, NO SOB NOTED, NOT IN ACUTE DISTRESS. LEFT HAND #18 IV LINE, PATENT, INTACT WITH FLUIDS NS 125/HR. ALL SAFETY MEASURE PROVIDED. WILL CONTINUE TO MONITOR.
[2022-02-26 20:00] VITALS: BP 128/89
[2022-02-26] MEDS: ATORVASTATIN 40 MG TABLET PO SCH (21:14)
--- NOTE | 2022-02-26 22:47 | NUR ---
rn notes prn dilaudidi given for 8/10 pain tolerated well. will continue to monitor.
[2022-02-27] VITALS: BP 124/71
[2022-02-27] MEDS: HYDROMORPHONE INJ 2 MG/ML DISP.SYRIN IV PRN ×6 (02:42→23:27)
--- NOTE | 2022-02-27 02:51 | NUR ---
rn notes prn Dilaudid given and tolerated well for 8/10 pain. will continue to monitor.
[2022-02-27 04:00] VITALS: BP 121/70
[2022-02-27] MEDS: BLOOD SUGAR DIAGNOSTIC 1 EACH STRIP IN SCH ×4 (06:34→22:40)
[2022-02-27] MEDS: INSULIN REGULAR, HUMAN 100 UNIT/ML 3 ML VIAL SQ PRN ×4 (06:36→22:40)
--- NOTE | 2022-02-27 06:46 | NUR ---
n notes prn Dilaudid given and tolerated well for 8/10 pain. all needs attended throughout the shift. call light within reach. table within reach. will endorse care to day shift nurse.
--- NOTE | 2022-02-27 07:30 | NUR ---
ZIPPER CUTTER OPENING NOTE RECEIVED PATIENT ASLEEP IN BED, EASILY AROUSE. A/OX3, ABLE TO MAKE NEEDS KNOWN. ON RA, TOLERATING WELL. BREATHING EVEN AND UNLABORED. NOT IN ANY SIGN OF DISTRESS. ON TELE SENIOR CONSTRUCTION ESTIMATOR, WITH CURRENT READING OF SR WITH FIRST DEGREE AV BLOCK, NO COMPLAIN OF CARDIAC DISCOMFORT OR DISTRESS VOICED AT THIS TIME. L- HAND G #18, INTACT AND PATENT WITH NS INFUSING AT 125ML/HR. SAFETY MEASURES IN PLACE: BED LOCKED, AT LOWEST POSITION, RAILS UP X3, CALL DIXON WITHIN REACH. BED ALARAM ON. WILL CONTINUE TO MONITOR PATIENT.
[2022-02-27] MEDS: PANTOPRAZOLE 40 MG TABLET.DR PO SCH (07:55)
[2022-02-27] MEDS: LINAGLIPTIN 5 MG TABLET PO SCH (08:12)
[2022-02-27] MEDS: FUROSEMIDE 40 MG TABLET PO SCH (08:12)
[2022-02-27] MEDS: GABAPENTIN 300 MG CAPSULE PO SCH ×2 (08:12→17:57)
[2022-02-27] MEDS: CLOPIDOGREL BISULFATE 75 MG TABLET PO SCH (08:12)
[2022-02-27] MEDS: ASPIRIN 81 MG TAB.CHEW PO SCH (08:12)
[2022-02-27] MEDS: POTASSIUM CHLORIDE 10 MEQ TABLET.SA PO SCH ×2 (08:12→17:56)
[2022-02-27] MEDS: CARVEDILOL 12.5 MG TABLET PO SCH ×2 (08:13→17:56)
[2022-02-27] MEDS: SENNOSIDES 8.6 MG TABLET PO SCH ×2 (08:13→17:00)
[2022-02-27] MEDS: IV NS 0.9% 1,000 ML IV PRN ×2 (10:59→19:21)
--- NOTE | 2022-02-27 16:21 | NUR ---
SS received consult for pt. has various concerns. SS will follow-up at a later time.
--- NOTE | 2022-02-27 19:28 | NUR ---
DYE MACHINE TENDER CLOSING NOTE PATIENT AWAKE IN BED WATCHING TV. A/OX3, ABLE TO MAKE NEEDS KNOWN. ON RA, TOLERATING WELL. BREATHING EVEN AND UNLABORED. NOT IN ANY SIGN OF DISTRESS. ON TELE BOILER PLANT WORKER, WITH CURRENT READING OF SR WITH FIRST DEGREE AV BLOCK, HR 88. NO COMPLAIN OF CARDIAC DISCOMFORT OR DISTRESS VOICED AT THIS TIME. L- HAND G #18, INTACT AND PATENT WITH NS INFUSING AT 125ML/HR. ALL NEEDS ATTENDED. SAFETY MEASURES IN PLACE: BED LOCKED, AT LOWEST POSITION, RAILS UP X3, CALL LIGHT WITHIN REACH. BED ALARM ON. ENDORSED TO SHANK SANDER NURSE FOR MASSIEL.
--- NOTE | 2022-02-27 19:54 | NUR ---
POLICEMAN OPENING NOTES: RECEIVED PATIENT AWAKE IN BED , BED IN LOW POSITION CALL LIGHTS WITHIN REACH NO COMPLAIN OF PAIN AND DISCOMFORT AT THIS TIME ON ROOM AIR SATURATING WELL, ON TELE MONITORING SR-70, ON MONITORING FOR CHEST PAIN, WITH IV LINE AT RT HAND #20 SL ON HD TTH WITH RT CHEST PERMA CATH, HD DONE TODAY WITH 1500CC OUTPUT INTERRUPTED DUE TO CHEST PAIN, PATIENT KEPT CLEAN AND DRY ALL NEEDS MET WILL CONTINUE TO MONITOR. Addendum: 02/27/22 at 2006 by PAUL LANDA RN POLICEMAN OPENING NOTES: WRONG POSTING OF OPENING NOTES:
[2022-02-27 20:00] VITALS: BP 118/71
--- NOTE | 2022-02-27 20:07 | NUR ---
RN OFFICE OPENING NOTES: RECEIVED PATIENT AWAKE IN BED, BED IN LOW POSITION, CALL LIGHTS WITHIN REACH, NO COMPLAIN OF PAIN AND DISCOMFORT AT THIS TIME, ON ROOM AIR SATURATING WELL, PATIENT IS A/OX3 ABLE TO MAKE NEEDS KNOWN, AMBULATORY WITH WALKER, WITH LEFT BKA, WITH RT MID GFINGER AMPUTATION, ON PAIN MANAGEMENT, ON TELE MONITOR SR-88, WITH IV LINE AT RIGHT MID FINGER #18 WITH ONGOING NSS@125ML PER HOUR INFUSING WELL, PATIENT KEPT CLEAN AND DRY ALL NEEDS MET WILL CONTINUE TO MONITOR.
[2022-02-27] MEDS: ATORVASTATIN 40 MG TABLET PO SCH (22:22)
[2022-02-28] VITALS: BP 142/80
[2022-02-28] MEDS: HYDROMORPHONE INJ 2 MG/ML DISP.SYRIN IV PRN ×5 (03:32→20:56)
[2022-02-28 04:00] VITALS: BP 147/85
[2022-02-28] MEDS: INSULIN REGULAR, HUMAN 100 UNIT/ML 3 ML VIAL SQ PRN ×4 (06:37→21:44)
[2022-02-28] MEDS: IV NS 0.9% 1,000 ML IV PRN ×2 (06:38→19:34)
--- NOTE | 2022-02-28 07:03 | NUR ---
AEROPHYSICS ENGINEER CLOSING NOTES: RECEIVED PATIENT SLEEP IN BED COMFORTABLY, BED IN LOW POSITION CALL LIGHTS WITHIN REACH, NO COMPLAIN OF PAIN AND DISCOMFORT AT THIS TIME, ON ROOM AIR SATURATING WELL, PATIENT WITH IV LINE AT RAC#22 WITH ONGOING NSS@125ML/HR INFUSING WELL, PATIENT ON TELE MONITOR SR-80.- KEPT CLEAN AND DRY ALL NEEDS MET WILL CONTINUE TO MONITOR.
[2022-02-28] MEDS: PANTOPRAZOLE 40 MG TABLET.DR PO SCH (07:30)
--- NOTE | 2022-02-28 07:30 | NUR ---
SAFE DEPOSIT BOX RENTAL CLERK OPENING NOTE RECEIVED PATIENT IN BED AWAKE, A/OX4. ABLE TO MAKE NEEDS KNOWN, VERBALIZED THAT HE WANTS HIS DILAUDID FOR LEFT BKA PAIN, INFORMED HIM THAT I WILL GIVE IT. PT ON RA, TOLERATING WELL, BREATHING EVEN AND UNLABORED. ON TELE CONDUIT INSTALLER, WITH CURRENT READING OF NSR WITH FIRST DEGREE AV BLOCK, HR 98, NO COMPLAIN OF CARDIAC DISCOMFORT OR DISTRESS VOICED AT THIS TIME. IV ACCESS ON LEFT HAND G #22 INTACT AND WITH NS INFUSING AT 125ML/HR, NO S/S OF INFILTRATION AT SITE NOTED. FALL AND SAFETY MEASURES IN PLACED: BED IN LOWEST LOCKED POSITION, RAILS UP X2, CALL DIXON WITHIN REACH AND BED ALARM ON. WILL CONTINUE TO MONITOR PATIENT.
[2022-02-28] MEDS: BLOOD SUGAR DIAGNOSTIC 1 EACH STRIP IN SCH ×4 (07:59→21:27)
[2022-02-28 08:00] VITALS: BP 140/76
--- NOTE | 2022-02-28 08:00 | NUR ---
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 PRN DILAUDID 0.5MG IVP ADMINISTERED AT 0756. WILL CONTINUE TO MONITOR AND REASSESS PT.
[2022-02-28] MEDS: POTASSIUM CHLORIDE 10 MEQ TABLET.SA PO SCH ×2 (08:53→16:37)
[2022-02-28] MEDS: FUROSEMIDE 40 MG TABLET PO SCH (08:53)
[2022-02-28] MEDS: CARVEDILOL 12.5 MG TABLET PO SCH ×2 (08:53→16:37)
[2022-02-28] MEDS: GABAPENTIN 300 MG CAPSULE PO SCH ×2 (08:53→16:37)
[2022-02-28] MEDS: CLOPIDOGREL BISULFATE 75 MG TABLET PO SCH (08:54)
[2022-02-28] MEDS: ASPIRIN 81 MG TAB.CHEW PO SCH (08:54)
[2022-02-28] MEDS: SENNOSIDES 8.6 MG TABLET PO SCH ×2 (08:54→16:45)
[2022-02-28] MEDS: LINAGLIPTIN 5 MG TABLET PO SCH (08:54)
[2022-02-28 08:56] LABS: BASOPHILS % (AUTO) 0.7 % (0.0-2.0); EOSINOPHILS % (AUTO) 4.4 % (0.0-6.0); HEMATOCRIT 28 % (39-51); HEMOGLOBIN 8.9 g/dL (13.5-17.5); LYMPHOCYTES # (AUTO) 1.2 K/uL (0.8-4.8); LYMPHOCYTES % (AUTO) 26.4 % (20.0-44.0); MEAN CORPUSCULAR HGB CONC 31 g/dl (31.0-36.0); MEAN CORPUSCULAR VOLUME 90 fL (80-96); MONOCYTES # (AUTO) 0.6 K/uL (0.1-1.30); MONOCYTES % (AUTO) 13.4 % (2.0-12.0); NEUTROPHILS # (AUTO) 2.5 K/uL (1.8-8.9); NEUTROPHILS % (AUTO) 55.1 % (43.0-81.0); PLATELET COUNT (AUTO) 185 K/uL (150-450); RED BLOOD CELL COUNT(AUTO) 3.14 MIL/uL (4.5-6.0); WHITE BLOOD COUNT (AUTO) 4.5 K/uL (4.3-11.0)
[2022-02-28 09:08] LABS: CALCIUM, SERUM 7.8 mg/dL (8.5-10.1); CREATININE 2.6 mg/dL (0.6-1.3); MAGNESIUM 1.8 mg/dL (1.8-2.4); PHOSPHORUS 3.9 mg/dL (2.5-4.9); POTASSIUM 4.3 mmol/L (3.5-5.1)
[2022-02-28] MEDS ORDERED: LACT10SO58 PO (11:03)
[2022-02-28] MEDS ORDERED: ATOR40TA PO (11:03)
[2022-02-28] MEDS ORDERED: FURO40TA5 PO (11:03)
[2022-02-28] MEDS ORDERED: ASPI-1169 PO (11:03)
[2022-02-28] MEDS ORDERED: APIX2.5T PO (11:04)
[2022-02-28 12:00] VITALS: BP 134/77
--- NOTE | 2022-02-28 12:43 | NUR ---
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 PRN DILAUDID 0.5MG IVP ADMINISTERED AT 0756. WILL CONTINUE TO MONITOR AND REASSESS PT. Addendum: 02/28/22 at 1728 by YESIKA BALDERAS RN TIME ADMINISTERED [id number] NOT [id number]
--- NOTE | 2022-02-28 14:54 | NUR ---
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 PRN DILAUDID 0.5MG IVP ADMINISTERED AT 1454. WILL CONTINUE TO MONITOR AND REASSESS PT.
[2022-02-28 16:00] VITALS: BP 130/70
--- NOTE | 2022-02-28 18:35 | NUR ---
ROTOR ASSEMBLER CLOSING NOTES PATIENT IN BED WATCHING TV AT THIS TIME. A/OX4. ABLE TO MAKE NEEDS KNOWN. ON RA, TOLERATING WELL, BREATHING EVEN AND UNLABORED, NO SOB NOTED DURING SHIFT. ON TELE- MONITOR, WITH CURRENT READING OF NSR WITH FIRST DEGREE AV BLOCK, HR 85, NO C/O CARDIAC DISCOMFORT OR DISTRESS VOICED. IV ACCESS ON LEFT HAND G #22 INTACT WITH IVF OF NS INFUSING AT 125ML/HR, NO S/S OF INFILTRATIONS AT SITE NOTED. ALL NEEDS AND CARE ATTENDED WELL. FALL AND SAFETY MEASURES MAINTAINED: BED IN LOWEST LOCKED POSITION, SIDE-RAILS UP X2, CALL DIXON WITHIN REACH AND BED ALARM ON. WILL ENDORSE MASSIEL TO UNLEAVENED DOUGH MIXER NURSE.
--- NOTE | 2022-02-28 19:58 | NUR ---
COMMUNICATIONS PROGRAMMER OPENING RECEIVED PATIENT IN BED, INTERMITTENTLY SLEEPING. EASY TO AROUSE. NO S/S OF APPARENT DISTRESS ON ROOM AIR. C/O 7/10 PAIN AT THIS TIME ON HIS L. LEG NOTED TO BE AMPUTATED-- WILL GIVE MEDICATION WHEN DUE . TELE MONITOR READING SR WITH 80 BPM AND 1ST DEGREE HB. IV NS RUNNING @125 MLS/HR. RE-ORIENTED AND ENCOURAGED WITH THE USE OF CALL LIGHT. WILL CONTINUE WITH PLAN OF CARE FOR PATIENT.
[2022-02-28 20:00] VITALS: BP 140/72
[2022-02-28] MEDS: ATORVASTATIN 40 MG TABLET PO SCH (21:00)
[2022-02-28] MEDS: INSULIN GLARGINE, 100 UNIT/ML CARTRIDGE SQ PRN (21:43)
[2022-03-01] VITALS: BP 118/65
[2022-03-01] MEDS: HYDROMORPHONE INJ 2 MG/ML DISP.SYRIN IV PRN ×4 (01:08→16:14)
[2022-03-01 04:00] VITALS: BP 141/88
[2022-03-01] MEDS: BLOOD SUGAR DIAGNOSTIC 1 EACH STRIP IN SCH ×3 (07:01→16:37)
[2022-03-01] MEDS: INSULIN REGULAR, HUMAN 100 UNIT/ML 3 ML VIAL SQ PRN ×2 (07:03→11:54)
--- NOTE | 2022-03-01 07:30 | NUR ---
WEB APPLICATION TESTER OPENING NOTES RECEIVED PATIENT IN BED, AWAKE. A/O X4. ON RA WITH NO S/SX OF RESP DISTRESS NOTED. BKA LEFT LEG. TELE MONITOR READING SR WITH 78 BPM AND 1ST DEGREE HB. IV NS RUNNING @125 MLS/HR. SAFETY PRECAUTIONS IN PLACE. CALL LIGHT WITHIN REACH. D/C PLAN TO GO HOME TODAY. WILL CONTINUE TO MONITOR.
--- NOTE | 2022-03-01 07:31 | NUR ---
SINGER AND UNLOADER NOTE NEEDS ATTENDED. GAVE REPORT TO LISBET FOR CONTINUITY OF CARE.
[2022-03-01 08:00] VITALS: BP 124/75
[2022-03-01] MEDS: PANTOPRAZOLE 40 MG TABLET.DR PO SCH (08:27)
[2022-03-01] MEDS: SENNOSIDES 8.6 MG TABLET PO SCH ×2 (08:27→16:14)
[2022-03-01] MEDS: POTASSIUM CHLORIDE 10 MEQ TABLET.SA PO SCH ×2 (08:27→16:14)
[2022-03-01] MEDS: LINAGLIPTIN 5 MG TABLET PO SCH (08:27)
[2022-03-01] MEDS: ASPIRIN 81 MG TAB.CHEW PO SCH (08:27)
[2022-03-01] MEDS: FUROSEMIDE 40 MG TABLET PO SCH (08:27)
[2022-03-01] MEDS: GABAPENTIN 300 MG CAPSULE PO SCH ×2 (08:27→16:14)
[2022-03-01] MEDS: CARVEDILOL 12.5 MG TABLET PO SCH ×2 (08:28→16:14)
[2022-03-01] MEDS: CLOPIDOGREL BISULFATE 75 MG TABLET PO SCH (08:28)
[2022-03-01] MEDS: IV NS 0.9% 1,000 ML IV PRN (10:28)
[2022-03-01 16:14] VITALS: BP 145/75
--- NOTE | 2022-03-01 17:50 | NUR ---
PROFESSOR OF CHEMICAL ENGINEERING NOTES PATIENT MEDICALLY STABLE FOR DISCHARGE. DISCHARGE INSTRUCTIONS PROVIDED TO PATIENT AND FAMILY MEMBERS AT BEDSIDE. PATIENT ABLE TO VERBALIZE UNDERSTANDING. WILL CONTINUE TO FOLLOW UP WITH PRIMARY CARE PHYSICIAN, MANAGER E LEARNING AND CONTINUE TO TAKE MEDS PRESCRIBED. ALL DOCUMENTS SIGNED. BELONGINGS ACCOUNTED FOR. IV ACCESS REMOVED. ID BAND REMOVED. PATIENT LEFT FACILITY ACCOMPANIED BY AND DAUGHTER IN PRIVATE CAR.
== END 2022-03-01 17:53 | disposition home or self-care (01) | DRG 280 ==
LOC: ER 20:52 → TELE-TD 22:08 → UNDOADMIN 22:08 → TELE 22:41 → ICU 02-21 00:42 → MEDSG1 02-21 10:54 → TELE1 02-21 20:18 → MEDSG1 02-24 20:42 → TELE1 02-25 15:50 → TELE 02-26 18:50
PROVIDERS: ADMIT Nurse Practitioner Family
PROC: 4A023N7 Measurement of Cardiac Sampling and Pressure, Left Heart, Percutaneous Approach (ICD-10-PCS; principal; 2022-02-22)
PROC: B211YZZ Fluoroscopy of Multiple Coronary Arteries using Other Contrast (ICD-10-PCS; 2022-02-22)
DX: I21.4 Non-ST elevation (NSTEMI) myocardial infarction (principal); N17.0 Acute kidney failure with tubular necrosis; I50.23 Acute on chronic systolic (congestive) heart failure; E44.0 Moderate protein-calorie malnutrition; I16.1 Hypertensive emergency; I13.0 Hypertensive heart and chronic kidney disease with heart failure and stage 1 through stage 4 chronic kidney disease, or unspecified chronic kidney disease; J90 Pleural effusion, not elsewhere classified; I42.9 Cardiomyopathy, unspecified; J98.11 Atelectasis; Z20.822 Contact with and (suspected) exposure to COVID-19; E11.65 Type 2 diabetes mellitus with hyperglycemia; E88.09 Other disorders of plasma-protein metabolism, not elsewhere classified; I25.10 Atherosclerotic heart disease of native coronary artery without angina pectoris; Z89.512 Acquired absence of left leg below knee; Z95.5 Presence of coronary angioplasty implant and graft; D64.9 Anemia, unspecified; E04.1 Nontoxic single thyroid nodule; N18.9 Chronic kidney disease, unspecified; E11.22 Type 2 diabetes mellitus with diabetic chronic kidney disease; E87.6 Hypokalemia; R91.8 Other nonspecific abnormal finding of lung field; Z79.4 Long term (current) use of insulin; G54.7 Phantom limb syndrome without pain; N14.1 Nephropathy induced by other drugs, medicaments and biological substances; T50.8X5A Adverse effect of diagnostic agents, initial encounter; Y92.009 Unspecified place in unspecified non-institutional (private) residence as the place of occurrence of the external cause; Z86.718 Personal history of other venous thrombosis and embolism; I25.2 Old myocardial infarction
CPT/HCPCS: 36415; 71045-TC; 71250-TC; 72110-TC; 76536-TC; 76770-TC; 80048-TC; 80061-TC; 80076-TC; 81001; 82570-TC; 82962-TC; 83540-TC; 83735-TC; 83880; 84100-TC; 84155-TC; 84300-TC; 84443-TC; 84484-TC; 85025-TC; 85610-TC; 86850-TC; 87081-TC; 93307-TC; 97116-TC; 97530-TC; A6253; A6403; G0378; G0500; J0360; J1170; J1644; J1815; J2250; J3010; J3490; J7030; Q9967